=== PATIENT | male | born 1975 | race Caucasian/White ===

== ENCOUNTER → 2023-07-10 07:12 | Outpatient (CLI) | payer OTHER, SELFPAY ==
--- NOTE | 2023-07-10 | DI.US.S_ITS ---
PROCEDURE: US ABDOMEN LIMITED INDICATIONS: Epigastric pain TECHNIQUE: Real-time scanning was performed of the abdominal and retroperitoneal organs, with image documentation. COMPARISON: None. FINDINGS: Liver: Normal in size. Increased in echogenicity. Gallbladder: No gallstones. There is a 5 mm polyp within the anterior wall. No wall thickening. No pericholecystic edema. Negative sonographic Walter's sign. Biliary ducts: Intrahepatic bile ducts are non-dilated. Extrahepatic bile duct caliber measures 4.5 mm. Normal is 6-7 mm or less in diameter, or 10 mm or less post-cholecystectomy. Pancreas: Not well seen secondary to overlying bowel gas. Miscellaneous: No free abdominal fluid. IMPRESSION: 1. Increased hepatic echogenicity noted possibly related to hepatic steatosis but other sources of hepatocellular disease or hepatic cirrhosis cannot be excluded. Recommend clinical correlation. 2. There is a gallbladder polyp measuring 5 mm. This is statistically favored to be benign and no follow-up is necessary. Dictated by: Blade Justin M.D. on 07/10/2023 at 9:13 Approved by: Blade Justin M.D. on 07/10/2023 at 9:14
== END ==
PROVIDERS: Referring Provider Student in an Organized Health Care Education/Training Program; Visit Provider Student in an Organized Health Care Education/Training Program
DX: K82.4 Cholesterolosis of gallbladder (principal); R10.13 Epigastric pain; R11.2 Nausea with vomiting, unspecified
CPT/HCPCS: 76705

== ENCOUNTER → 2023-08-22 08:00 | Outpatient (CLI) | payer OTHER, SELFPAY ==
--- NOTE | 2023-08-22 08:02 | DI.RAD.S_ITS ---
PROCEDURE: FL SMALL BOWEL FOLLOW THROUGH INDICATIONS: Nausea with vomiting, unspecified COMPARISON: None. FINDINGS: KUB: Preprocedural funeral pre need consultant film demonstrates a normal bowel gas pattern. No suspicious abdominal calcifications. Visualized solid organ contours appear normal. No suspicious bony abnormalities. Small bowel: There is normal transit time of barium through the small bowel. Small bowel loops are of normal caliber throughout. Mucosal folds are smooth and of normal thickness. No strictures, intraluminal masses, or extrinsic mass effects are noted. The terminal ileum is identified, and is normal in morphology. Contrast reaches the ascending colon at 30 minutes. IMPRESSION: No dilated loops of small bowel. Contrast reaches the ascending colon at 30 minutes. Dictated by: Miah Mark M.D. on 08/22/2023 at 11:47 Approved by: Miah Mark M.D. on 08/22/2023 at 11:49
== END ==
PROVIDERS: Referring Provider Internal Medicine Gastroenterology; Visit Provider Internal Medicine Gastroenterology
DX: R11.2 Nausea with vomiting, unspecified (principal)
CPT/HCPCS: 74250